=== PATIENT | male | born 1935 | race Caucasian/White ===

== ENCOUNTER 2018-10-02 09:27 | Emergency (ER) | payer OTHER ==
[~2018-10-02] VITALS: Ht 177.8 cm; Wt 95.3 kg
[2018-10-02] MEDS ORDERED: GLUMETZA500 MG (09:39)
[2018-10-02] MEDS ORDERED: XARELTO10 MG (09:39)
== END 2018-10-02 13:45 | disposition home or self-care (01) ==
LOC: ER 09:27
DX: R31.0 Gross hematuria (principal)